=== PATIENT | female | born 1950 | race African-American/Black ===

== ENCOUNTER 2021-05-18 13:39 | Emergency (ER) | payer MEDICARE, OTHER ==
[2021-05-18 13:58] LABS: #Eosinphils 0.2 10x3/uL (0.0-0.5); #Monocytes 0.4 10x3/uL (0.0-1.1); #Neutrophils 2.2 10x3/uL (1.5-8.4); %Basophils 0.5 % (0.0-2.0); %Eosinophils 4.6 % (0.0-6.0); %Lymphocytes 25.3 % (18.0-47.0); %Neutrophils 58.3 % (40.0-75.0); Hemoglobin 9.8 g/dL (12.0-15.5); Mean Corpuscular HGB CONC 31.7 g/dL (32.0-36.0); Mean Corpuscular Hemoglobin 30.6 pg (27.0-33.0); Mean Corpuscular Volume 96.6 fl (81.6-98.3); Mean Platelet Volume 11.1 fl (7.4-10.4); Platelet Count 218 10x3/uL (150-450); RBC Distribution Width 14.4 % (11.5-14.5); White Blood Cell (WBC) Count 3.7 10x3/uL (3.5-10.5)
[2021-05-18 14:16] LABS: ALT (SGPT) 10 U/L (8-55); AST (SGOT) 15 U/L (5-34); Alkaline Phosphatase 64 U/L (40-110); Anion Gap 18 mmol/L (10-20); BUN (Urea Nitrogen) 31 mg/dL (9.8-20.1); Bilirubin, Total 0.7 mg/dL (0.2-1.2); Calc. Creatinine Clearance 0 mL/min (70-130); Calcium 9.9 mg/dL (7.8-10.44); Carbon Dioxide 27 mmol/L (23-31); Chloride 102 mmol/L (98-107); Globulin 3.2 g/dL (2.4-3.5); Glucose 85 mg/dL (80-115); Potassium 3.2 mmol/L (3.5-5.1); Protein, Total 7.2 g/dL (5.8-8.1); Sodium 144 mmol/L (136-145)
== END 2021-05-18 16:50 | disposition home or self-care (01) ==
LOC: CSHERS 13:39
DX: I13.2 Hypertensive heart and chronic kidney disease with heart failure and with stage 5 chronic kidney disease, or end stage renal disease (principal); I50.9 Heart failure, unspecified; N18.6 End stage renal disease; F17.220 Nicotine dependence, chewing tobacco, uncomplicated; Z99.2 Dependence on renal dialysis; Z86.16 Personal history of COVID-19; Z87.01 Personal history of pneumonia (recurrent)
CPT/HCPCS: 71045; 80053; 83880; 84484; 85025; 93005; 94760

== ENCOUNTER 2022-06-14 20:22 | Emergency (ER) | payer OTHER ==
[2022-06-14 22:59] LABS: #Eosinphils 0.1 10x3/uL (0.0-0.5); #Monocytes 0.3 10x3/uL (0.0-1.1); #Neutrophils 1.8 10x3/uL (1.5-8.4); %Basophils 0.3 % (0.0-2.0); %Eosinophils 3.6 % (0.0-6.0); %Lymphocytes 28.4 % (18.0-47.0); %Monocytes 8.3 % (0.0-10.0); %Neutrophils 59.1 % (40.0-75.0); Hemoglobin 10.1 g/dL (12.0-15.5); Mean Corpuscular HGB CONC 32.9 g/dL (32.0-36.0); Mean Corpuscular Hemoglobin 29.1 pg (27.0-33.0); Mean Corpuscular Volume 88.5 fl (81.6-98.3); Mean Platelet Volume 10.8 fl (7.4-10.4); Platelet Count 211 10x3/uL (150-450); RBC Distribution Width 16.6 % (11.5-14.5); Red Blood Cell (RBC) Count 3.47 10x6/uL (3.90-5.03)
[2022-06-14 23:35] LABS: ALT (SGPT) 11 U/L (8-55); AST (SGOT) 16 U/L (5-34); Albumin 4.2 g/dL (3.4-4.8); Alkaline Phosphatase 87 U/L (40-110); Anion Gap 21 mmol/L (10-20); BUN (Urea Nitrogen) 56 mg/dL (9.8-20.1); Bilirubin, Total 0.7 mg/dL (0.2-1.2); Calc. Creatinine Clearance 0 mL/min (70-130); Calcium 9.8 mg/dL (7.8-10.44); Carbon Dioxide 23 mmol/L (23-31); Chloride 99 mmol/L (98-107); Estimated GFR 6; Globulin 3.4 g/dL (2.4-3.5); Glucose 72 mg/dL (80-115); Potassium 4.1 mmol/L (3.5-5.1); Protein, Total 7.6 g/dL (5.8-8.1); Sodium 139 mmol/L (136-145)
== END 2022-06-15 06:31 | disposition home or self-care (01) ==
LOC: CSHERS 20:22
DX: R06.02 Shortness of breath (principal); I13.2 Hypertensive heart and chronic kidney disease with heart failure and with stage 5 chronic kidney disease, or end stage renal disease; I50.9 Heart failure, unspecified; N18.6 End stage renal disease; F17.220 Nicotine dependence, chewing tobacco, uncomplicated; Z99.2 Dependence on renal dialysis; Z79.899 Other long term (current) drug therapy
CPT/HCPCS: 71045; 80053; 83880; 84484; 85025; 93005

== ENCOUNTER 2022-09-07 00:20 | Observation (INO) | payer OTHER ==
[2022-09-07] MEDS ORDERED: Calcium Gluc 4.6 MEQ/10 ML (100 MG/ML) SLOW IVP SCH (01:15)
[2022-09-07] MEDS ORDERED: Guaifenesin DM 100-10/5 ML UDCUP PO PRN (01:17)
[2022-09-07] MEDS ORDERED: Senokot S 8.6-50 MG TAB PO PRN (01:17)
[2022-09-07] MEDS ORDERED: Calcium Carbonate 500 MG ChewTAB PO PRN (01:17)
[2022-09-07] MEDS ORDERED: hydrALAZINE 25 MG TAB PO SCH (01:30)
[2022-09-07 02:43] VITALS: BMI 21.2
[2022-09-07] MEDS: Acetaminophen 325 MG TAB PO PRN (03:30)
[2022-09-07 04:02] LABS: Anion Gap 22 mmol/L (10-20); BUN (Urea Nitrogen) 74 mg/dL (9.8-20.1); Calc. Creatinine Clearance 7 mL/min (70-130); Calcium 9.4 mg/dL (7.8-10.44); Carbon Dioxide 26 mmol/L (23-31); Chloride 100 mmol/L (98-107); Estimated GFR 6; Glucose 74 mg/dL (80-115); Potassium 4.5 mmol/L (3.5-5.1); Sodium 143 mmol/L (136-145)
[2022-09-07] MEDS: Isosorbide Dinitrate 20 MG TAB PO SCH ×3 (09:00→20:29)
[2022-09-07] MEDS: Megestrol Acetate 40 MG TAB PO SCH (09:00)
[2022-09-07] MEDS: Apixaban 2.5 MG TAB PO SCH ×2 (09:00→20:32)
[2022-09-07 09:37] LABS: HBSAg Index 0.17 S/CO (0-0.99); Hep B Surf Ag Non-Reactive S/CO (NonReactive)
[2022-09-07] MEDS: Dronedarone HCl 400 MG TAB PO SCH ×2 (09:45→20:29)
[2022-09-07] MEDS: hydrALAZINE 25 MG TAB PO SCH ×3 (15:00→20:29)
[2022-09-07 15:29] LABS: Hep C IgG Ab Non-Reactive (NonReactive); Hep C Index 0.04 S/CO (0-0.79)
[2022-09-07 16:06] LABS: HBSAB Concentration 37.27 mIU/mL; Hep B Surf AB Reactive (NonReactive)
[2022-09-07] MEDS: Nitroglycerin 0.4 MG TAB (25 Tab Bottle) SL PRN (17:00)
[2022-09-07 17:47] LABS: Hep B Core Total Ab Reactive (NonReactive)
[2022-09-07] MEDS: Aspirin 81 mg Enteric Coated Tablet PO SCH (20:02)
[2022-09-07] MEDS: NIFEdipine XL 60 MG TAB PO SCH (20:03)
[2022-09-07] MEDS ORDERED: hydrALAZINE 20 MG/ML VIAL SLOW IVP PRN (21:45)
[2022-09-07] MEDS: Ondansetron PF 4 MG/2 ML Vial IVP PRN (23:40)
[2022-09-08] MEDS ORDERED: cloNIDine 0.1 MG TAB PO SCH ×2 (00:30→23:59)
[2022-09-08 08:43] LABS: #Eosinphils 0.2 10x3/uL (0.0-0.5); #Monocytes 0.5 10x3/uL (0.0-1.1); #Neutrophils 2.7 10x3/uL (1.5-8.4); %Basophils 0.5 % (0.0-2.0); %Eosinophils 4.8 % (0.0-6.0); %Lymphocytes 22.1 % (18.0-47.0); %Monocytes 10.9 % (0.0-10.0); %Neutrophils 61.5 % (40.0-75.0); Hemoglobin 12.1 g/dL (12.0-15.5); Mean Corpuscular HGB CONC 31.7 g/dL (32.0-36.0); Mean Corpuscular Hemoglobin 28.9 pg (27.0-33.0); Mean Corpuscular Volume 91.2 fl (81.6-98.3); Mean Platelet Volume 12.7 fl (7.4-10.4); Platelet Count 205 10x3/uL (150-450); RBC Distribution Width 16.1 % (11.5-14.5); Red Blood Cell (RBC) Count 4.19 10x6/uL (3.90-5.03); White Blood Cell (WBC) Count 4.4 10x3/uL (3.5-10.5)
[2022-09-08] MEDS: Megestrol Acetate 40 MG TAB PO SCH (09:06)
[2022-09-08] MEDS: hydrALAZINE 25 MG TAB PO SCH ×3 (09:06→21:36)
[2022-09-08] MEDS: Aspirin 81 mg Enteric Coated Tablet PO SCH (09:07)
[2022-09-08] MEDS: NIFEdipine XL 60 MG TAB PO SCH (09:07)
[2022-09-08] MEDS: Isosorbide Dinitrate 20 MG TAB PO SCH ×3 (09:07→21:37)
[2022-09-08] MEDS: Dronedarone HCl 400 MG TAB PO SCH ×2 (09:07→17:30)
[2022-09-08] MEDS: Apixaban 2.5 MG TAB PO SCH ×2 (09:07→21:36)
[2022-09-09] MEDS ORDERED: traMADol HCl 50 MG TAB PO SCH (00:15)
[2022-09-09 05:35] LABS: #Eosinphils 0.2 10x3/uL (0.0-0.5); #Monocytes 0.7 10x3/uL (0.0-1.1); #Neutrophils 2.5 10x3/uL (1.5-8.4); %Basophils 0.4 % (0.0-2.0); %Eosinophils 3.9 % (0.0-6.0); %Lymphocytes 26.8 % (18.0-47.0); %Monocytes 14.7 % (0.0-10.0); Hemoglobin 12.9 g/dL (12.0-15.5); Mean Corpuscular HGB CONC 31.7 g/dL (32.0-36.0); Mean Corpuscular Hemoglobin 28.7 pg (27.0-33.0); Mean Corpuscular Volume 90.4 fl (81.6-98.3); Mean Platelet Volume 10.7 fl (7.4-10.4); Platelet Count 217 10x3/uL (150-450); RBC Distribution Width 16.1 % (11.5-14.5); White Blood Cell (WBC) Count 4.6 10x3/uL (3.5-10.5)
[2022-09-09 05:49] LABS: Anion Gap 21 mmol/L (10-20); BUN (Urea Nitrogen) 53 mg/dL (9.8-20.1); Calc. Creatinine Clearance 8 mL/min (70-130); Calcium 9.9 mg/dL (7.8-10.44); Carbon Dioxide 26 mmol/L (23-31); Chloride 98 mmol/L (98-107); Estimated GFR 7; Glucose 87 mg/dL (80-115); Potassium 4.6 mmol/L (3.5-5.1); Sodium 140 mmol/L (136-145)
[2022-09-09] MEDS: NIFEdipine XL 60 MG TAB PO SCH (08:21)
[2022-09-09] MEDS: hydrALAZINE 25 MG TAB PO SCH ×2 (08:21→19:58)
[2022-09-09] MEDS: Aspirin 81 mg Enteric Coated Tablet PO SCH (08:21)
[2022-09-09] MEDS: Dronedarone HCl 400 MG TAB PO SCH ×2 (08:21→19:58)
[2022-09-09] MEDS: Acetaminophen 325 MG TAB PO PRN (08:25)
[2022-09-09] MEDS: Megestrol Acetate 40 MG TAB PO SCH (08:29)
[2022-09-09] MEDS: Isosorbide Dinitrate 20 MG TAB PO SCH ×2 (08:30→19:58)
[2022-09-09] MEDS: Ondansetron PF 4 MG/2 ML Vial IVP PRN (12:18)
[2022-09-09] MEDS: Nitroglycerin 0.4 MG TAB (25 Tab Bottle) SL PRN ×2 (17:17→17:48)
[2022-09-09 19:56] VITALS: BP 159/69; TEMP 98.1
[2022-09-09] MEDS: Apixaban 2.5 MG TAB PO SCH (19:58)
== END 2022-09-09 20:50 | disposition home or self-care (01) ==
LOC: CSHTELE 00:20 → INTOOBSV 00:20 → CSHTELE 00:54
PROVIDERS: ADMIT Student in an Organized Health Care Education/Training Program; ATTEND Hospitalist
DX: J96.11 Chronic respiratory failure with hypoxia (principal); R07.2 Precordial pain; E87.70 Fluid overload, unspecified; I13.2 Hypertensive heart and chronic kidney disease with heart failure and with stage 5 chronic kidney disease, or end stage renal disease; I50.30 Unspecified diastolic (congestive) heart failure; N18.6 End stage renal disease; Z99.2 Dependence on renal dialysis; U09.9 Post COVID-19 condition, unspecified; Z20.822 Contact with and (suspected) exposure to COVID-19; I48.0 Paroxysmal atrial fibrillation; I49.5 Sick sinus syndrome; Z99.81 Dependence on supplemental oxygen; K21.9 Gastro-esophageal reflux disease without esophagitis; I08.0 Rheumatic disorders of both mitral and aortic valves; E78.5 Hyperlipidemia, unspecified; D63.1 Anemia in chronic kidney disease; D64.9 Anemia, unspecified; Z79.82 Long term (current) use of aspirin; Z79.899 Other long term (current) drug therapy; Z79.01 Long term (current) use of anticoagulants; E87.5 Hyperkalemia; Z88.5 Allergy status to narcotic agent; Z88.8 Allergy status to other drugs, medicaments and biological substances
CPT/HCPCS: 80048 ×2; 82962 ×2; 84484 ×2; 85025 ×2; 86704; 93306; 94760 ×3; 96374; 96375; G0378 ×3; J0360; J0610; U0003; U0005; 36415; 36416; 90935; G0257; J2405; S0179

== ENCOUNTER 2023-07-31 04:41 | Inpatient (IN) | payer OTHER ==
[2023-07-31] MEDS ORDERED: Nitroglycerin 0.4 MG TAB (25 Tab Bottle) SL PRN (06:54)
[2023-07-31] MEDS ORDERED: Albuterol 2.5 MG (3 mL) NEB NEB PRN (07:10)
[2023-07-31 07:55] LABS: #Monocytes 0.5 10x3/uL (0.0-1.1); %Basophils 0.3 % (0.0-2.0); %Eosinophils 0.8 % (0.0-6.0); %Lymphocytes 8.2 % (18.0-47.0); %Monocytes 13.4 % (0.0-10.0); Hematocrit 24.7 % (34.9-44.5); Mean Corpuscular HGB CONC 32.4 g/dL (32.0-36.0); Mean Corpuscular Hemoglobin 29.5 pg (27.0-33.0); Mean Corpuscular Volume 91.1 fl (81.6-98.3); Mean Platelet Volume 11.8 fl (7.4-10.4); Platelet Count 147 10x3/uL (150-450); Red Blood Cell (RBC) Count 2.71 10x6/uL (3.90-5.03); White Blood Cell (WBC) Count 3.9 10x3/uL (3.5-10.5)
[2023-07-31 08:06] LABS: INR-International Normal Ratio 0.9; PTT 22.8 sec (22.0-33.0); Prothrombin Time 10.2 sec (9.5-12.1)
[2023-07-31] MEDS: hydrALAZINE 25 MG TAB PO SCH ×3 (08:28→20:18)
[2023-07-31] MEDS: cloNIDine 0.1 MG TAB PO SCH ×3 (08:28→22:15)
[2023-07-31] MEDS: Apixaban 2.5 MG TAB PO SCH ×2 (08:29→20:16)
[2023-07-31] MEDS: Aspirin 81 mg Enteric Coated Tablet PO SCH (08:29)
[2023-07-31] MEDS: NIFEdipine XL 60 MG ER.TAB PO SCH ×2 (08:29→20:17)
[2023-07-31] MEDS: Losartan 50 MG TAB PO SCH (08:29)
[2023-07-31] MEDS: Folic Acid 1 MG TAB PO SCH (08:29)
[2023-07-31] MEDS: Amiodarone 200 MG TAB PO SCH (08:29)
[2023-07-31 08:31] LABS: ALT (SGPT) 21 U/L (8-55); AST (SGOT) 19 U/L (5-34); Alkaline Phosphatase 82 U/L (40-110); Anion Gap 24 mmol/L (10-20); BUN (Urea Nitrogen) 60 mg/dL (9.8-20.1); Bilirubin, Total 0.7 mg/dL (0.2-1.2); Calc. Creatinine Clearance 6 mL/min (70-130); Calcium 9.8 mg/dL (7.8-10.44); Carbon Dioxide 23 mmol/L (23-31); Chloride 94 mmol/L (98-107); Estimated GFR 5; Globulin 3.1 g/dL (2.4-3.5); Glucose 76 mg/dL (83-110); Magnesium 1.8 mg/dL (1.6-2.6); Potassium 5.7 mmol/L (3.5-5.1); Protein, Total 7.1 g/dL (5.8-8.1); Sodium 135 mmol/L (136-145)
[2023-07-31 08:33] LABS: Troponin I Less than 0.010 ng/mL (< 0.028)
[2023-07-31] MEDS ORDERED: Isosorbide Dinitrate 10 MG TAB PO SCH (09:00)
[2023-07-31] MEDS ORDERED: Non-Formulary Medication 1 EACH (Omeprazole [Omeprazole] 20 MG Capsule.Dr) PO SCH (09:00)
[2023-07-31] MEDS ORDERED: Pantoprazole 40 MG VIAL IVP SCH (09:00)
[2023-07-31 10:23] LABS: Actual Bicarbonate (HCO3v) 27.1 mEq/L (22-28); Analyzer IN Cardio CS ER; Base Excess 2.4 mEq/L (-2 - +2); Calcium, Ionized (venous) 1.13 mmol/L (1.16-1.32); Chloride (VBG) 94 mmol/L (98-106); Critical Notified Whom: KARAD; Hematocrit-VBG 25 % (36.0-47.0); Hemoglobin (Hb) 8.4 g/dL (11.7-16.1); Puncture Site Other Site; RapidComm Collect By CBN; Sodium 127 mmol/L (133-146); pH (venous) 7.421 (7.32-7.43)
[2023-07-31 10:33] LABS: Troponin I Less than 0.010 ng/mL (< 0.028)
[2023-07-31] MEDS ORDERED: Epoetin (ESRD) 10,000 UNITS/ML VIAL IVP PRN (12:00)
[2023-07-31] MEDS ORDERED: Labetalol HCl 100 MG/20 ML VIAL SLOW IVP PRN (12:38)
[2023-07-31] MEDS ORDERED: Heparin 10,000 UNITS/ 10 ML VIAL FS PRN (13:16)
[2023-07-31] MEDS: Lidocaine 2% 6 ML (Jelly) SYR TOP PRN (13:46)
[2023-07-31] MEDS: Isosorbide Dinitrate 20 MG TAB PO SCH ×2 (15:31→20:16)
[2023-07-31] MEDS ORDERED: HYDROcodone/Acetaminophen 5/325 mg Tablet PO SCH (21:15)
[2023-07-31] MEDS: Acetaminophen 325 MG TAB PO PRN (22:18)
[2023-07-31] MEDS ORDERED: Vancomycin Hemodialysis Sliding Scale FS SCH (23:00)
[2023-07-31] MEDS ORDERED: VANCOMYCIN 1.25 GM/250 ML BAG 1.25 GM in Premix 1 BAG IVPB SCH (23:00)
[2023-08-01] MEDS ORDERED: Cefepime 1 GM in Sodium Chloride 0.9% 100 ML IVPB SCH (01:00)
[2023-08-01 02:38] LABS: SARS-CoV-2 NAA Rapid Test DETECTED (NotDetected)
[2023-08-01 02:52] LABS: #Monocytes 0.5 10x3/uL (0.0-1.1); #Neutrophils 2.4 10x3/uL (1.5-8.4); %Basophils 0.3 % (0.0-2.0); %Eosinophils 0.6 % (0.0-6.0); %Lymphocytes 8.8 % (18.0-47.0); %Neutrophils 73.7 % (40.0-75.0); Hematocrit 23.2 % (34.9-44.5); Hemoglobin 7.3 g/dL (12.0-15.5); Mean Corpuscular HGB CONC 31.5 g/dL (32.0-36.0); Mean Corpuscular Hemoglobin 28.5 pg (27.0-33.0); Mean Corpuscular Volume 90.6 fl (81.6-98.3); Mean Platelet Volume 10.6 fl (7.4-10.4); Platelet Count 139 10x3/uL (150-450); RBC Distribution Width 17.3 % (11.5-14.5); Red Blood Cell (RBC) Count 2.56 10x6/uL (3.90-5.03); White Blood Cell (WBC) Count 3.3 10x3/uL (3.5-10.5)
[2023-08-01 03:52] LABS: Anion Gap 19 mmol/L (10-20); BUN (Urea Nitrogen) 22 mg/dL (9.8-20.1); Calc. Creatinine Clearance 11 mL/min (70-130); Calcium 9.7 mg/dL (7.8-10.44); Carbon Dioxide 25 mmol/L (23-31); Chloride 97 mmol/L (98-107); Estimated GFR 11; Glucose 69 mg/dL (83-110); Magnesium 1.8 mg/dL (1.6-2.6); Potassium 3.8 mmol/L (3.5-5.1); Sodium 137 mmol/L (136-145)
[2023-08-01] MEDS: Dexamethasone 4 mg/ml Vial SLOW IVP SCH (04:08)
[2023-08-01] MEDS: Acetaminophen 325 MG TAB PO PRN (08:00)
[2023-08-01] MEDS ORDERED: Magnesium 2 GM/50 ML(in water) 2 GM in Premix 1 BAG IVPB SCH (08:15)
[2023-08-01] MEDS: Aspirin 81 mg Enteric Coated Tablet PO SCH (08:43)
[2023-08-01] MEDS: Isosorbide Dinitrate 20 MG TAB PO SCH ×3 (08:43→20:27)
[2023-08-01] MEDS: Apixaban 2.5 MG TAB PO SCH ×2 (08:43→20:27)
[2023-08-01] MEDS: Folic Acid 1 MG TAB PO SCH (08:44)
[2023-08-01] MEDS: NIFEdipine XL 60 MG ER.TAB PO SCH ×2 (08:44→20:27)
[2023-08-01] MEDS: Amiodarone 200 MG TAB PO SCH (08:44)
[2023-08-01] MEDS: hydrALAZINE 25 MG TAB PO SCH ×3 (08:44→20:26)
[2023-08-01] MEDS: cloNIDine 0.1 MG TAB PO SCH ×2 (08:44→20:27)
[2023-08-01] MEDS: Losartan 50 MG TAB PO SCH (08:45)
[2023-08-01] MEDS: Lidocaine 2% 6 ML (Jelly) SYR TOP PRN (10:57)
[2023-08-01] MEDS: Ascorbic Acid 500 mg Chewable Tablet PO SCH (20:27)
[2023-08-01] MEDS: Cefepime 0.5 GM, Admixture Fee 1 EACH in Sodium Chloride 0.9% 50 ML IVPB SCH (20:44)
[2023-08-02] MEDS: Lorazepam 0.5 MG TAB PO PRN ×3 (00:40→21:53)
[2023-08-02 03:02] LABS: #Eosinphils 0.1 10x3/uL (0.0-0.5); #Monocytes 0.6 10x3/uL (0.0-1.1); #Neutrophils 2.6 10x3/uL (1.5-8.4); %Basophils 0.3 % (0.0-2.0); %Eosinophils 1.8 % (0.0-6.0); %Lymphocytes 13.7 % (18.0-47.0); %Monocytes 14.5 % (0.0-10.0); %Neutrophils 68.4 % (40.0-75.0); Hemoglobin 8.3 g/dL (12.0-15.5); Mean Corpuscular HGB CONC 33.2 g/dL (32.0-36.0); Mean Corpuscular Hemoglobin 29.6 pg (27.0-33.0); Mean Corpuscular Volume 89.3 fl (81.6-98.3); Mean Platelet Volume 11.6 fl (7.4-10.4); Platelet Count 151 10x3/uL (150-450); RBC Distribution Width 17.1 % (11.5-14.5); White Blood Cell (WBC) Count 3.8 10x3/uL (3.5-10.5)
[2023-08-02 04:02] LABS: Anion Gap 20 mmol/L (10-20); BUN (Urea Nitrogen) 42 mg/dL (9.8-20.1); Calc. Creatinine Clearance 0 mL/min (70-130); Calcium 9.7 mg/dL (7.8-10.44); Carbon Dioxide 24 mmol/L (23-31); Chloride 97 mmol/L (98-107); Estimated GFR 7; Glucose 84 mg/dL (83-110); Potassium 4.4 mmol/L (3.5-5.1); Sodium 137 mmol/L (136-145)
[2023-08-02] MEDS: Dexamethasone 4 mg/ml Vial SLOW IVP SCH (05:00)
[2023-08-02 08:00] LABS: Vancomycin, Random 20.6 ug/mL (See Comment)
[2023-08-02] MEDS: Apixaban 2.5 MG TAB PO SCH ×2 (08:53→20:26)
[2023-08-02] MEDS: Aspirin 81 mg Enteric Coated Tablet PO SCH (08:53)
[2023-08-02] MEDS: NIFEdipine XL 60 MG ER.TAB PO SCH ×2 (08:53→20:26)
[2023-08-02] MEDS: Isosorbide Dinitrate 20 MG TAB PO SCH ×3 (08:54→20:26)
[2023-08-02] MEDS: cloNIDine 0.1 MG TAB PO SCH ×2 (08:55→20:27)
[2023-08-02] MEDS: Folic Acid 1 MG TAB PO SCH (08:55)
[2023-08-02] MEDS: Amiodarone 200 MG TAB PO SCH (08:55)
[2023-08-02] MEDS: Losartan 50 MG TAB PO SCH (08:56)
[2023-08-02] MEDS: Lidocaine 2% 6 ML (Jelly) SYR TOP PRN (10:10)
[2023-08-02] MEDS: hydrALAZINE 25 MG TAB PO SCH ×3 (10:11→20:25)
[2023-08-02] MEDS: Acetaminophen 325 MG TAB PO PRN ×2 (13:40→18:35)
[2023-08-02] MEDS ORDERED: Vancomycin HCl 250 MG, Admixture Fee 1 EACH in Sodium Chloride 0.9% 100 ML IV SCH (17:00)
[2023-08-02] MEDS: Ascorbic Acid 500 mg Chewable Tablet PO SCH (20:25)
[2023-08-02] MEDS: Cefepime 0.5 GM, Admixture Fee 1 EACH in Sodium Chloride 0.9% 50 ML IVPB SCH (20:25)
[2023-08-03] MEDS: Acetaminophen 325 MG TAB PO PRN (00:43)
[2023-08-03] MEDS: Dexamethasone 4 mg/ml Vial SLOW IVP SCH (03:19)
[2023-08-03 03:54] LABS: Anion Gap 16 mmol/L (10-20); BUN (Urea Nitrogen) 23 mg/dL (9.8-20.1); Calc. Creatinine Clearance 12 mL/min (70-130); Calcium 9.1 mg/dL (7.8-10.44); Carbon Dioxide 24 mmol/L (23-31); Chloride 100 mmol/L (98-107); Estimated GFR 12; Glucose 96 mg/dL (83-110); Potassium 3.4 mmol/L (3.5-5.1); Sodium 137 mmol/L (136-145)
[2023-08-03 03:56] LABS: #Eosinphils 0.1 10x3/uL (0.0-0.5); #Monocytes 0.6 10x3/uL (0.0-1.1); #Neutrophils 3.2 10x3/uL (1.5-8.4); %Basophils 0.4 % (0.0-2.0); %Eosinophils 1.3 % (0.0-6.0); %Lymphocytes 13.9 % (18.0-47.0); %Monocytes 12.4 % (0.0-10.0); %Neutrophils 71.1 % (40.0-75.0); Hematocrit 26.9 % (34.9-44.5); Mean Corpuscular HGB CONC 33.5 g/dL (32.0-36.0); Mean Corpuscular Hemoglobin 30.3 pg (27.0-33.0); Mean Corpuscular Volume 90.6 fl (81.6-98.3); Mean Platelet Volume 10.5 fl (7.4-10.4); Platelet Count 169 10x3/uL (150-450); RBC Distribution Width 17.2 % (11.5-14.5); Red Blood Cell (RBC) Count 2.97 10x6/uL (3.90-5.03); White Blood Cell (WBC) Count 4.5 10x3/uL (3.5-10.5)
[2023-08-03] MEDS: hydrALAZINE 25 MG TAB PO SCH ×3 (08:34→21:41)
[2023-08-03] MEDS: NIFEdipine XL 60 MG ER.TAB PO SCH ×2 (08:34→21:41)
[2023-08-03] MEDS: Apixaban 2.5 MG TAB PO SCH ×2 (08:34→21:42)
[2023-08-03] MEDS: Isosorbide Dinitrate 20 MG TAB PO SCH ×3 (08:34→21:42)
[2023-08-03] MEDS: Folic Acid 1 MG TAB PO SCH (08:34)
[2023-08-03] MEDS: Amiodarone 200 MG TAB PO SCH (08:35)
[2023-08-03] MEDS: Losartan 50 MG TAB PO SCH (08:35)
[2023-08-03] MEDS: cloNIDine 0.1 MG TAB PO SCH ×2 (08:35→21:42)
[2023-08-03] MEDS: Aspirin 81 mg Enteric Coated Tablet PO SCH (08:35)
[2023-08-03] MEDS: Cefepime 0.5 GM, Admixture Fee 1 EACH in Sodium Chloride 0.9% 50 ML IVPB SCH (21:47)
[2023-08-03] MEDS ORDERED: diphenhydrAMINE 25 MG CAP PO PRN (22:14)
[2023-08-04 00:57] VITALS: BMI 25.0
[2023-08-04 03:32] LABS: #Eosinphils 0.1 10x3/uL (0.0-0.5); #Monocytes 0.6 10x3/uL (0.0-1.1); #Neutrophils 2.9 10x3/uL (1.5-8.4); %Basophils 0.4 % (0.0-2.0); %Eosinophils 2.2 % (0.0-6.0); %Lymphocytes 19.5 % (18.0-47.0); %Monocytes 12.5 % (0.0-10.0); %Neutrophils 63.4 % (40.0-75.0); Hematocrit 26.5 % (34.9-44.5); Hemoglobin 8.8 g/dL (12.0-15.5); Mean Corpuscular HGB CONC 33.2 g/dL (32.0-36.0); Mean Corpuscular Hemoglobin 30.2 pg (27.0-33.0); Mean Corpuscular Volume 91.1 fl (81.6-98.3); Mean Platelet Volume 10.7 fl (7.4-10.4); Platelet Count 178 10x3/uL (150-450); RBC Distribution Width 17.2 % (11.5-14.5); Red Blood Cell (RBC) Count 2.91 10x6/uL (3.90-5.03); White Blood Cell (WBC) Count 4.6 10x3/uL (3.5-10.5)
[2023-08-04 03:50] LABS: Anion Gap 19 mmol/L (10-20); BUN (Urea Nitrogen) 41 mg/dL (9.8-20.1); Calc. Creatinine Clearance 8 mL/min (70-130); Calcium 9.3 mg/dL (7.8-10.44); Carbon Dioxide 24 mmol/L (23-31); Chloride 99 mmol/L (98-107); Estimated GFR 7; Glucose 91 mg/dL (83-110); Potassium 3.6 mmol/L (3.5-5.1); Sodium 138 mmol/L (136-145)
[2023-08-04 08:50] VITALS: TEMP 97.6
[2023-08-04 08:55] LABS: Vancomycin, Random 16.3 ug/mL (See Comment)
[2023-08-04] MEDS: Apixaban 2.5 MG TAB PO SCH (09:11)
[2023-08-04] MEDS: NIFEdipine XL 60 MG ER.TAB PO SCH (09:11)
[2023-08-04] MEDS: cloNIDine 0.1 MG TAB PO SCH (09:11)
[2023-08-04] MEDS: Isosorbide Dinitrate 20 MG TAB PO SCH ×2 (09:11→16:25)
[2023-08-04] MEDS: Folic Acid 1 MG TAB PO SCH (09:11)
[2023-08-04] MEDS: hydrALAZINE 25 MG TAB PO SCH ×2 (09:11→16:25)
[2023-08-04] MEDS: Losartan 50 MG TAB PO SCH (09:11)
[2023-08-04] MEDS: Amiodarone 200 MG TAB PO SCH (09:11)
[2023-08-04] MEDS: Aspirin 81 mg Enteric Coated Tablet PO SCH (09:11)
[2023-08-04 09:13] VITALS: BP 138/75
[2023-08-04] MEDS: Acetaminophen 325 MG TAB PO PRN (09:34)
[2023-08-04] MEDS: Lidocaine 2% 6 ML (Jelly) SYR TOP PRN (11:18)
[2023-08-04] MEDS ORDERED: Vancomycin HCl 500 MG in Sodium Chloride 0.9% 100 ML IVPB SCH (17:00)
== END 2023-08-04 16:38 | disposition swing bed (61) | DRG 291 ==
LOC: CSHICU 04:52 → CSHTELE 08-03 16:08
PROVIDERS: ADMIT Family Medicine; ATTEND Internal Medicine
PROC: 5A09457 Assistance with Respiratory Ventilation, 24-96 Consecutive Hours, Continuous Positive Airway Pressure (ICD-10-PCS; 2023-07-31)
PROC: 3E03329 Introduction of Other Anti-infective into Peripheral Vein, Percutaneous Approach (ICD-10-PCS; principal; 2023-08-01)
PROC: 30233N1 Transfusion of Nonautologous Red Blood Cells into Peripheral Vein, Percutaneous Approach (ICD-10-PCS; 2023-08-01)
PROC: 8E0ZXY6 Isolation (ICD-10-PCS; 2023-08-01)
DX: I13.2 Hypertensive heart and chronic kidney disease with heart failure and with stage 5 chronic kidney disease, or end stage renal disease (principal); I50.33 Acute on chronic diastolic (congestive) heart failure; J96.21 Acute and chronic respiratory failure with hypoxia; N18.6 End stage renal disease; U07.1 COVID-19; I48.0 Paroxysmal atrial fibrillation; I25.10 Atherosclerotic heart disease of native coronary artery without angina pectoris; E87.70 Fluid overload, unspecified; D63.1 Anemia in chronic kidney disease; R50.9 Fever, unspecified; E83.42 Hypomagnesemia; E78.5 Hyperlipidemia, unspecified; Z88.5 Allergy status to narcotic agent; Z88.8 Allergy status to other drugs, medicaments and biological substances; Z99.2 Dependence on renal dialysis; Z79.82 Long term (current) use of aspirin; Z79.899 Other long term (current) drug therapy; Z98.51 Tubal ligation status; Z98.49 Cataract extraction status, unspecified eye; Z98.890 Other specified postprocedural states; Z80.3 Family history of malignant neoplasm of breast; Z83.3 Family history of diabetes mellitus; Z82.49 Family history of ischemic heart disease and other diseases of the circulatory system; Z90.710 Acquired absence of both cervix and uterus
CPT/HCPCS: 0241U; 36415; 36416; 36430; 71045; 80048; 80053; 80202; 82805; 83735; 84145; 84484; 85025; 85610; 85730; 86850; 86900; 86901; 87040; 90935; 93005; 93010; 94660; 94760; 94762; C9113; G0257; J0692; J1100; J1644; J3370; J3475; J3490; P9016